=== PATIENT | male | born 1940 | race Caucasian/White ===

== ENCOUNTER → 2016-06-05 | Outpatient (CLI) | payer OTHER ==
[~2016-06-05] MED LIST: ACET-1256 PO; CALC600T9 PO; CHEMO DRUGS; DENOINJ IM; LORA-741 PO; NLSI IM; OMEP20TA PO; ONDA4TAB46 PO; PRED-301 PO; SENN-65 PO; TRAM1TAB14 PO; [UNRECOGNIZED DRUG - CODE] IV; lupron; oxycontin PO
[2016-06-05 12:28] LABS: MEAN CORPUSCULAR HGB CONC 31.4 g/dl (32-36)
[2016-06-05 12:38] LABS: HEMATOCRIT 26.4 % (42-52); MEAN CELL VOLUME 88.6 fL (80-100); MEAN CORPUSCULAR HEMOGLOBIN 27.9 pg (25-34); RED BLOOD COUNT 2.98 M/uL (4.7-6.1); WHITE BLOOD COUNT 8.72 K/uL (4.8-10.8)
[2016-06-05 12:53] LABS: PLATELET COUNT 49 K/uL (130-400)
[2016-06-05 12:55] LABS: ANISOCYTOSIS PRESENT; BASO % 0.1 %; BASO ABS # 0.01 K/uL (0-0.2); COMPLETE YES; EOS % 0.1 %; IG% 2.9 %; LYMPH % 15.1 %; LYMPH ABS # 1.32 K/uL (1.2-3.4); MONO % 7.8 %; PLT ESTIMATE DECREASED; POIKILOCYTOSIS PRESENT; POLYCHROMASIA 1+
[2016-06-05 13:25] LABS: ALT/SGPT 18 U/L (12-78); AST/SGOT 20 U/L (15-37); BLOOD UREA NITROGEN 14 mg/dl (7-18); BUN/CREATININE RATIO 14.1 (10-20); CALCIUM 8.5 mg/dl (8.5-10.1); CARBON DIOXIDE 26 mmol/L (21-32); CHLORIDE 99 mmol/L (98-107); CREATININE 0.97 mg/dl (0.60-1.40); GLUCOSE 180 mg/dl (70-99); POTASSIUM 4.1 mmol/L (3.5-5.1); SODIUM 137 mmol/L (136-145)
[2016-06-05 13:27] LABS: ALB/GLOB RATIO 1.1 (0.9-2); ALKALINE PHOSPHATASE 164 U/L (45-117)
== END | disposition home or self-care (01) ==
LOC: C.LABBFT 09:47
PROVIDERS: ATTEND Internal Medicine
DX: M54.31 Sciatica, right side (principal)

== ENCOUNTER → 2016-07-09 | Outpatient (CLI) | payer OTHER ==
[2016-07-09 12:53] LABS: HEMATOCRIT 24.1 % (42-52); MEAN CORPUSCULAR HEMOGLOBIN 29.4 pg (25-34); RED BLOOD COUNT 2.62 M/uL (4.7-6.1); WHITE BLOOD COUNT 5.29 K/uL (4.8-10.8)
[2016-07-09 13:16] LABS: ANISOCYTOSIS PRESENT; BASO % 0.6 %; BASO ABS # 0.03 K/uL (0-0.2); COMPLETE YES; IG% 1.1 %; LYMPH % 19.1 %; LYMPH ABS # 1.01 K/uL (1.2-3.4); MONO % 9.6 %; NEUT % 69.6 %; PLATELET COUNT 32 K/uL (130-400); PLT ESTIMATE DECREASED; POLYCHROMASIA 1+
== END | disposition home or self-care (01) ==
LOC: C.LABBFT 10:40
PROVIDERS: ATTEND Internal Medicine
DX: D64.9 Anemia, unspecified (principal)

== ENCOUNTER → 2016-07-24 | Outpatient (CLI) | payer OTHER ==
[2016-07-24 17:48] LABS: HEMATOCRIT 27.2 % (42-52); MEAN CELL VOLUME 93.2 fL (80-100); MEAN CORPUSCULAR HEMOGLOBIN 29.8 pg (25-34); RED BLOOD COUNT 2.92 M/uL (4.7-6.1); WHITE BLOOD COUNT 5.48 K/uL (4.8-10.8)
[2016-07-24 19:08] LABS: ANISOCYTOSIS PRESENT; COMPLETE YES; HYPERSEGMENTED POLYS 1+; IG% 0.9 %; LYMPH % 20.3 %; LYMPH ABS # 1.11 K/uL (1.2-3.4); MEAN PLATELET VOLUME 9.6 fL (7.4-10.4); MONO % 7.1 %; NEUT % 71.7 %; PLATELET COUNT 56 K/uL (130-400); PLT ESTIMATE DECREASED
== END | disposition home or self-care (01) ==
LOC: C.LABBFT 11:35
PROVIDERS: ATTEND Internal Medicine
DX: Z00.00 Encounter for general adult medical examination without abnormal findings (principal)

== ENCOUNTER → 2016-08-20 | Outpatient (CLI) | payer OTHER | END | disposition home or self-care (01) | LOC: C.LABBFT 14:12 | PROVIDERS: ATTEND Internal Medicine | DX: D64.9 Anemia, unspecified (principal) ==

== ENCOUNTER → 2016-10-22 | Outpatient (CLI) | payer OTHER ==
--- NOTE | 2016-10-22 17:02 | DIAGNOSTIC IMAGING REPORT ---
RIGHT RIBS UNILATERAL WITH PA CHEST CLINICAL HISTORY: Right-sided rib pain. COMPARISON STUDY: No previous studies for comparison. FINDINGS: The erect chest reveals mild cardiac enlargement. There is a right-sided A-Port catheter present. There is no pneumothorax. There is no focal pulmonary consolidation. 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 No rib fractures are visualized. There is a suspected right renal calculus. IMPRESSION: 1. No evidence of pneumothorax 2. No right-sided rib fractures identified 3. Extensive multi focal osteoblastic skeletal metastasis 4. Suspected right-sided nephrolithiasis Electronically signed by: Tito Valdes M.D. 10/22/2016 5:01 PM Dictated Date/Time: 10/22/2016 4:59 PM
== END | disposition home or self-care (01) ==
LOC: C.RADBC 16:42
PROVIDERS: ATTEND Internal Medicine
DX: M54.9 Dorsalgia, unspecified (principal); R93.7 Abnormal findings on diagnostic imaging of other parts of musculoskeletal system

== ENCOUNTER → 2016-10-29 | Outpatient (CLI) | payer OTHER | END | disposition home or self-care (01) | LOC: C.LABBFT 10:06 | PROVIDERS: ATTEND Internal Medicine | DX: D64.9 Anemia, unspecified (principal) ==

== ENCOUNTER → 2016-11-15 | Outpatient (CLI) | payer OTHER ==
--- NOTE | 2016-11-15 15:02 | DIAGNOSTIC IMAGING REPORT ---
RIGHT WRIST MIN 3 VIEWS ROUTINE HISTORY:75 [id number] acute right wrist pain and swelling without known injury. Right COMPARISON: None available. TECHNIQUE: Frontal, lateral and oblique views of the right wrist. FINDINGS: The bones are moderately demineralized. No acute fracture or dislocation is identified. Multifocal degenerative changes are present with severe osteoarthritis of the first carpal metacarpal joint. Moderate osteoarthritis involves the triscaphe and radiocarpal joints. There is mild soft tissue swelling about the wrist without radiopaque foreign body. IMPRESSION: 1. Mild soft tissue swelling about the wrist without acute fracture or dislocation. 2. Severe osteoarthritis of the first carpometacarpal joint. The above report was generated using voice recognition software. It may contain grammatical, syntax or spelling errors. Electronically signed by: Guido Palmer 11/15/2016 3:01 PM Dictated Date/Time: 11/15/2016 2:57 PM
== END | disposition home or self-care (01) ==
LOC: C.RADBC 14:08
PROVIDERS: ATTEND Physician Assistant
DX: M25.439 Effusion, unspecified wrist (principal)

== ENCOUNTER → 2017-04-09 | Outpatient (CLI) | payer OTHER | END | disposition home or self-care (01) | LOC: C.LABSPEC 16:43 | PROVIDERS: ATTEND Dermatology | DX: B02.9 Zoster without complications (principal) ==